=== PATIENT | male | born 1935 | race Caucasian/White ===

== ENCOUNTER 2020-11-18 15:56 | Observation (INO) | payer OTHER ==
[~2020-11-18] VITALS: Ht 182.9 cm; Wt 99.8 kg
[~2020-11-18 15:56] MED LIST: AMIT50 PO; ASPI325 PO; DICL75ER PO; DOXY100 PO; DULERA 100 MCG/13 GM INH; FEROSUL325 M1 PO; FISH OIL PO; FLUSAL2505 IH; HYDACE5 PO; HYDCHL25 PO; HYDR-86 PO; INDO50 PO; LISI5 PO; LOVA40 PO; NABU500 PO; OMEP20ER PO; OXYC5 PO; ROFE12.5; TAMS.4ER; VITAMIN D31000 UNI1 PO; [UNRECOGNIZED DRUG - CODE] PO
[2020-11-18 17:07] LABS: BASOPHILS ABSOLUTE AUTO 0.05 K/mm3 (0.00-0.23); BASOPHILS PERCENT AUTO 1 % (0-2); EOSINOPHILS ABSOLUTE AUTO 0.32 K/mm3 (0.00-0.68); EOSINOPHILS PERCENT AUTO 5 % (0-6); Hematocrit 44.2 % (37.0-53.0); IMMATURE GRAN ABSOLUTE AUTO 0.03 K/mm3 (0.00-0.10); IMMATURE GRAN PERCENT AUTO 1 % (0-1); LYMPHOCYTES ABSOLUTE AUTO 1.49 K/mm3 (0.84-5.20); LYMPHOCYTES PERCENT AUTO 24 % (21-46); MONOCYTES ABSOLUTE AUTO 0.66 K/mm3 (0.16-1.47); MONOCYTES PERCENT AUTO 11 % (4-13); Mean Corpuscular HGB 31.6 pg (26.0-34.0); Mean Corpuscular HGB Conc 31.7 g/dL (31.5-36.5); Mean Corpuscular Volume 100 fL (80-100); Mean Platelet Volume 9.9 fL (9.1-12.4); NEUTROPHILS ABSOLUTE AUTO 3.76 K/mm3 (1.96-9.15); NEUTROPHILS PERCENT AUTO 60 % (41-73); NRBC ABSOLUTE 0.02 K/mm3 (0.00-0.02); NRBC Auto 0.3 /100 WBC (0.0-0.2); Platelet Count 206 K/mm3 (150-400); RDW Coefficient Variation 12.3 % (11.7-14.2); RDW Standard Deviation 45.5 fL (35.1-46.3); Red Blood Cell Count 4.43 M/mm3 (4.30-5.90); White Blood Cell Count 6.31 K/mm3 (4.00-11.30)
[2020-11-18 17:25] LABS: Albumin, Blood 3.9 g/dL (3.4-5.0); Albumin/Globulin Ratio 1.2 (0.8-1.8); Bilirubin, Total 0.8 mg/dL (0.1-1.0); Bun/Creatinine Ratio 11.8 (12.0-20.0); Calcium, Blood 8.6 mg/dL (8.5-10.1); Creatinine, Blood 1.44 mg/dL (0.60-1.20); Globulin, Blood 3.2 g/dL (2.2-4.0); Potassium, Blood 4.7 mmol/L (3.5-5.5); Total Protein, Blood 7.1 g/dL (6.4-8.2)
[2020-11-18] MEDS ORDERED: ANORO ELLIPTA1 EAC1 PO (21:21)
[2020-11-18] MEDS ORDERED: NEURONTIN300 MG PO (21:22)
[2020-11-18] MEDS ORDERED: MONT10T PO (21:23)
[2020-11-18] MEDS ORDERED: Ventolin/Prove6.7 GM INH (21:23)
[2020-11-18] MEDS ORDERED: PAXIL40 M1 PO (21:23)
[2020-11-18] MEDS ORDERED: Artificial Tear15 ML BOTHEYES (22:39)
[2020-11-19 01:27] LABS: Source, Urine Clean Catch
[2020-11-19 01:30] LABS: Bilirubin, Urine Neg (Neg); Blood, Urine Neg (Neg); Glucose Qualitative, Urine Neg (Neg); Ketones, Urine Neg (Neg); Leukocyte Esterase, Urine Neg (Neg); Nitrite, Urine Neg (Neg); Protein, Urine 1+ (Neg); Urobilinogen, Urine NORM (Normal)
[2020-11-19 01:32] LABS: Appearance, Urine Clear (Clear); Color, Urine Yellow (P-Yellow)
[2020-11-19 05:52] LABS: BASOPHILS ABSOLUTE AUTO 0.04 K/mm3 (0.00-0.23); BASOPHILS PERCENT AUTO 1 % (0-2); EOSINOPHILS ABSOLUTE AUTO 0.31 K/mm3 (0.00-0.68); EOSINOPHILS PERCENT AUTO 5 % (0-6); Hematocrit 38.3 % (37.0-53.0); Hemoglobin 12.3 g/dL (13.5-17.5); IMMATURE GRAN ABSOLUTE AUTO 0.02 K/mm3 (0.00-0.10); IMMATURE GRAN PERCENT AUTO 0 % (0-1); LYMPHOCYTES ABSOLUTE AUTO 1.12 K/mm3 (0.84-5.20); LYMPHOCYTES PERCENT AUTO 19 % (21-46); MONOCYTES ABSOLUTE AUTO 0.59 K/mm3 (0.16-1.47); MONOCYTES PERCENT AUTO 10 % (4-13); Mean Corpuscular HGB 32.3 pg (26.0-34.0); Mean Corpuscular HGB Conc 32.1 g/dL (31.5-36.5); Mean Corpuscular Volume 101 fL (80-100); Mean Platelet Volume 10.2 fL (9.1-12.4); NEUTROPHILS ABSOLUTE AUTO 3.93 K/mm3 (1.96-9.15); NEUTROPHILS PERCENT AUTO 65 % (41-73); Platelet Count 163 K/mm3 (150-400); RDW Coefficient Variation 12.3 % (11.7-14.2); RDW Standard Deviation 45.1 fL (35.1-46.3); Red Blood Cell Count 3.81 M/mm3 (4.30-5.90); White Blood Cell Count 6.01 K/mm3 (4.00-11.30)
[2020-11-19 06:09] LABS: Albumin, Blood 3.1 g/dL (3.4-5.0); Albumin/Globulin Ratio 1.1 (0.8-1.8); Bun/Creatinine Ratio 11.8 (12.0-20.0); Creatinine, Blood 1.27 mg/dL (0.60-1.20); Globulin, Blood 2.7 g/dL (2.2-4.0); Potassium, Blood 4.4 mmol/L (3.5-5.5); Total Protein, Blood 5.8 g/dL (6.4-8.2)
--- NOTE | 2020-11-19 09:23 | NUR ---
Echocardiogram completed using 9.0ml of agitated saline contrast.
[2020-11-19] MEDS ORDERED: ASCO500 PO (10:25)
[2020-11-19] MEDS ORDERED: OMEP20ER PO (10:27)
[2020-11-19] MEDS ORDERED: Prinivil10 MG PO ×2 (10:28→11:55)
[2020-11-19] MEDS ORDERED: PAXIL40 M1 PO (11:55)
--- NOTE | 2020-11-19 13:56 | NUR ---
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 Diamante LE, AN ECHO AND CAROTID ULTRASOUND HAVE BEEN ORDERED AND IF THINGS APPEAR WITHIN NORMAL LIMITS, PT WILL BE DISCHARGED FROM THE ER. IF ABNORMAL, PT WILL BE ADMITTED FOR FURTHER WORKUP OF CVA. -ARFA
[2020-11-19] MEDS ORDERED: OMEGA-3 FISH O1 EAC6 PO (19:43)
[2020-11-19] MEDS ORDERED: CLOP75 PO (19:44)
[2020-11-19] MEDS ORDERED: MONT10T PO (19:45)
[2020-11-19] MEDS ORDERED: IPRAT-ALBUT 0.5-3 ML INH (19:46)
--- NOTE | 2020-11-19 20:00 | NUR ---
DISCHARGE NOTES THIS RN REMOVED PT IV FROM RIGHT AC. THIS RN REVIEWED DC INSTRUCTIONS WITH PT AND WHO VERBALIZED UNDERSTANDING. PT DRESSED SELF IN HOME CLOTHING. PT GATHERED BELONGINGS. PT REFUSED WHEELCHAIR FOR TRANSPORT OFF UNIT. PT WALKED OFF UNIT WITH AND THIS RN. PT HAS LEFT BUILDING IN PRIVATE VEHICLE WITH AND BELONGINGS.
== END 2020-11-19 20:05 | disposition home or self-care (01) ==
LOC: ER 15:56 → ERHOLD 15:57 → MEDS 15:57
PROVIDERS: Physician Assistant; ADMIT Internal Medicine
DX: G45.9 Transient cerebral ischemic attack, unspecified (principal); I12.9 Hypertensive chronic kidney disease with stage 1 through stage 4 chronic kidney disease, or unspecified chronic kidney disease; E11.22 Type 2 diabetes mellitus with diabetic chronic kidney disease; E11.40 Type 2 diabetes mellitus with diabetic neuropathy, unspecified; N18.30 Chronic kidney disease, stage 3 unspecified; E78.00 Pure hypercholesterolemia, unspecified; J44.9 Chronic obstructive pulmonary disease, unspecified; K21.9 Gastro-esophageal reflux disease without esophagitis; I44.7 Left bundle-branch block, unspecified; Z79.82 Long term (current) use of aspirin; Z86.73 Personal history of transient ischemic attack (TIA), and cerebral infarction without residual deficits; Z96.651 Presence of right artificial knee joint
CPT/HCPCS: 36415; 51798; 70450; 80053; 85025; 93005; 93010; 93306; 93880; 94660; 96372-59; 99285-25; A9270; G0378; J1650; J7030

== ENCOUNTER 2021-04-01 06:25 | Day surgery (SDC) | payer OTHER ==
[~2021-04-01] VITALS: Ht 182.9 cm; Wt 96.0 kg
[~2021-04-01 06:25] MED LIST changes: +ANORO ELLIPTA1 EAC1 PO; +ASCO500 PO; +Artificial Tear15 ML BOTHEYES; +CLOP75 PO; +IPRAT-ALBUT 0.5-3 ML INH; +MONT10T PO; +NEURONTIN300 MG PO; +OMEGA-3 FISH O1 EAC6 PO; +PAXIL40 M1 PO; +Prinivil10 MG PO; +Ventolin/Prove6.7 GM INH
== END 2021-04-01 22:39 | disposition home or self-care (01) ==
LOC: MHTC 06:25
DX: G45.9 Transient cerebral ischemic attack, unspecified (principal); Z86.73 Personal history of transient ischemic attack (TIA), and cerebral infarction without residual deficits; Z79.82 Long term (current) use of aspirin
CPT/HCPCS: 82947; 93312; 93325; J2250; J2370; J2704; J3010; J7030

== ENCOUNTER 2022-06-05 10:26 | Emergency (ER) | payer OTHER ==
[~2022-06-05] VITALS: Ht 182.9 cm; Wt 99.8 kg
[2022-06-05 11:09] LABS: BASOPHILS ABSOLUTE AUTO 0.04 K/mm3 (0.00-0.23); BASOPHILS PERCENT AUTO 1 % (0-2); EOSINOPHILS ABSOLUTE AUTO 0.25 K/mm3 (0.00-0.68); EOSINOPHILS PERCENT AUTO 4 % (0-6); Hematocrit 44.9 % (37.0-53.0); Hemoglobin 14.5 g/dL (13.5-17.5); IMMATURE GRAN ABSOLUTE AUTO 0.01 K/mm3 (0.00-0.10); IMMATURE GRAN PERCENT AUTO 0 % (0-1); LYMPHOCYTES ABSOLUTE AUTO 0.91 K/mm3 (0.84-5.20); LYMPHOCYTES PERCENT AUTO 15 % (21-46); MONOCYTES ABSOLUTE AUTO 0.59 K/mm3 (0.16-1.47); MONOCYTES PERCENT AUTO 9 % (4-13); Mean Corpuscular HGB 31.7 pg (26.0-34.0); Mean Corpuscular HGB Conc 32.3 g/dL (31.5-36.5); Mean Corpuscular Volume 98 fL (80-100); Mean Platelet Volume 9.5 fL (9.1-12.4); NEUTROPHILS ABSOLUTE AUTO 4.48 K/mm3 (1.96-9.15); NEUTROPHILS PERCENT AUTO 71 % (41-73); Platelet Count 184 K/mm3 (150-400); RDW Coefficient Variation 12.3 % (11.7-14.2); RDW Standard Deviation 44.3 fL (35.1-46.3); Red Blood Cell Count 4.57 M/mm3 (4.30-5.90); White Blood Cell Count 6.28 K/mm3 (4.00-11.30)
[2022-06-05 11:26] LABS: Albumin, Blood 3.8 g/dL (3.4-5.0); Albumin/Globulin Ratio 1.2 (0.8-1.8); Bilirubin, Total 0.9 mg/dL (0.1-1.0); Bun/Creatinine Ratio 17.7 (12.0-20.0); Calcium, Blood 9.6 mg/dL (8.5-10.1); Creatinine, Blood 1.13 mg/dL (0.60-1.20); Globulin, Blood 3.1 g/dL (2.2-4.0); Potassium, Blood 4.6 mmol/L (3.5-5.5); Total Protein, Blood 6.9 g/dL (6.4-8.2)
[2022-06-05] MEDS ORDERED: LISI20 PO (13:03)
== END 2022-06-05 14:44 | disposition home or self-care (01) ==
LOC: ER 10:26
PROVIDERS: Student in an Organized Health Care Education/Training Program
DX: I12.9 Hypertensive chronic kidney disease with stage 1 through stage 4 chronic kidney disease, or unspecified chronic kidney disease (principal); N18.30 Chronic kidney disease, stage 3 unspecified; Z79.899 Other long term (current) drug therapy; Z79.82 Long term (current) use of aspirin; G47.33 Obstructive sleep apnea (adult) (pediatric); J44.9 Chronic obstructive pulmonary disease, unspecified; K21.9 Gastro-esophageal reflux disease without esophagitis; Z87.891 Personal history of nicotine dependence; E78.00 Pure hypercholesterolemia, unspecified; E11.22 Type 2 diabetes mellitus with diabetic chronic kidney disease
CPT/HCPCS: 80053; 84484; 85025; 93005; 93010; 99283-25